=== PATIENT | female | born 1995 | race Caucasian/White ===

== ENCOUNTER → 2017-06-11 | Outpatient (CLI) | payer BC ==
[~2017-06-11] MED LIST: OPTIRAY 320 IV PRN
--- NOTE | 2017-06-11 17:42 | DIAGNOSTIC IMAGING REPORT ---
ABD/PELVIS COMBO WITH ORAL HISTORY: 22 years-old Female ADREAL GLANDS,HYPERTRICHOSIS increased hair growth with elevated DHEA level. COMPARISON: None available. TECHNIQUE: Multiple axial CT images of the abdomen and pelvis were obtained both with and without the intravenous administration of 119 mL Optiray 320. 15 minute delayed images were also obtained utilizing adrenal mass protocol Oral contrast also administered. FINDINGS: The imaged lung bases are clear. There is no pneumoperitoneum. Imaged inferior cardiac chambers are unremarkable. Streak artifact from leads overlying the central chest partially obscure the liver. There is a nonspecific 6 x 5 mm low attenuating lesion within the lateral left hepatic lobe seen on image 52 of series 5. Spleen, pancreas, gallbladder and adrenal glands are within normal limits. No adrenal mass lesions identified. No significant adrenal thickening to suggest adrenal hyperplasia. The ureters and urinary bladder are unremarkable. There is a suspected punctate nonobstructing calculus of the interpolar left kidney seen on image 127 of series 3. Kidneys are otherwise within normal limits. Uterus and adnexa are within normal limits. The abdominal aorta is normal in both course and caliber. No bulky retroperitoneal adenopathy identified. There is no bowel obstruction or focal bowel wall thickening. The appendix appears normal. Patient obesity noted. Soft tissues are unremarkable. Bones appear intact. IMPRESSION: 1. No acute intra-abdominal or intrapelvic abnormality identified, specifically no focal abnormality of the adrenal glands or renal mass identified. 2. Ill-defined low attenuating 5 mm lesion of the lateral left hepatic lobe is nonspecific. Statistically this would favor a cyst or hemangioma. 3. Suspected punctate nonobstructing calculus of the interpolar left kidney. 4. Normal appendix. The above report was generated using voice recognition software. It may contain grammatical, syntax or spelling errors. Electronically signed by: Eduar Mueller M.D. 06/11/2017 5:40 PM Dictated Date/Time: 06/11/2017 5:31 PM
== END | disposition home or self-care (01) ==
LOC: C.CTS 14:32
PROVIDERS: ATTEND Nurse Practitioner Family
DX: E27.8 Other specified disorders of adrenal gland (principal); L68.9 Hypertrichosis, unspecified; K76.9 Liver disease, unspecified

== ENCOUNTER → 2017-09-08 | Day surgery (SDC) | payer BC ==
[~2017-09-08] VITALS: Ht 160 cm; Wt 98.0 kg
[~2017-09-08] MED LIST changes: +CETI5TAB5 PO; +COSYNTROPIN INJ 250 MCG in SYRINGE 4 ML IV SCH; +NORE-24 PO; -OPTIRAY 320 IV PRN; +VNTHFA/IN INH
[2017-09-08 08:06] VITALS: BP 134/81; PULSE 101; TEMP 36.4; O2SAT 98; Ht 160 cm; Wt 98.0 kg
[2017-09-08 09:39] VITALS: BP 113/76; PULSE 95; TEMP 36.7; O2SAT 96
== END | disposition home or self-care (01) ==
LOC: C.MTU 07:52
PROVIDERS: ATTEND Internal Medicine Endocrinology, Diabetes & Metabolism
DX: L68.0 Hirsutism (principal)